=== PATIENT | female | born 1985 | race Caucasian/White ===

== ENCOUNTER 2018-12-16 09:56 | Outpatient (REF) | payer MEDICAID, SELFPAY ==
[2018-12-16 12:37] LABS: Cholesterol 192 mg/dL (50-200); Glucose 82 mg/dL (70-100); HDL Cholesterol 52 mg/dL (40-60); LDL CHOLESTEROL 128 mg/dL (<100); TSH (W/Ref FT4) 1.52 uIU/mL (0.358-3.74); Triglyceride 57 mg/dL (30-150)
== END 2018-12-16 10:16 ==
LOC: NCHCN 09:56
PROVIDERS: PCP Nurse Practitioner; Visit Provider Nurse Practitioner
DX: E04.9 Nontoxic goiter, unspecified (principal); Z00.00 Encounter for general adult medical examination without abnormal findings
CPT/HCPCS: 80061; 82947; 83721; 84443

== ENCOUNTER 2018-12-31 00:32 | Outpatient (CLI) | payer MEDICAID, SELFPAY ==
--- NOTE | 2018-12-31 11:58 | DI.US_ITS ---
SYMPTOMS/DIAGNOSIS: ENLARGED THYROID, E04.9 THYROID ULTRASOUND: Routine examination was performed. The right lobe measures 5.8 x 1.8 x 1.6 cm. The left lobe measures 5.4 x 1.4 x 1.6 cm. The isthmus is within normal limits at .5 cm. There is an area of decreased echogenicity in the left lobe of the thyroid gland measuring less than 5 mm in diameter. No internal blood flow is seen. No echogenic foci to suggest calcification is noted. IMPRESSION: Question of a small hypoechoic nodule in the left lobe. The finding is nonspecific and may represent a benign nodule. Follow up as clinically appropriate.
== END 2018-12-31 00:52 ==
PROVIDERS: PCP Nurse Practitioner; Visit Provider Nurse Practitioner
DX: E04.9 Nontoxic goiter, unspecified (principal); E04.1 Nontoxic single thyroid nodule
CPT/HCPCS: 76536

== ENCOUNTER 2020-01-03 19:10 | Outpatient (REF) | payer MEDICAID, SELFPAY ==
[2020-01-03 22:11] LABS: TSH (W/Ref FT4) 2.39 uIU/mL (0.36-3.74)
== END 2020-01-03 19:30 ==
LOC: NCHCN 19:10
PROVIDERS: PCP Nurse Practitioner; Visit Provider Nurse Practitioner Family
DX: E04.1 Nontoxic single thyroid nodule (principal)
CPT/HCPCS: 84443

== ENCOUNTER 2020-01-10 14:22 | Outpatient (REF) | payer MEDICAID, SELFPAY ==
--- NOTE | 2020-01-10 13:30 | PAPFT_PTH ---
PATIENT: Beata Mittal LOC: [facility]#:[id number] AGE/SX: 34/F ROOM: RE01/10/[address]: Linda Coates : 1985 BED: DIS: 01/10/2020 SPEC #: [id number] RECD: 01/11/20 12:38 STATUS: SANIYA REKerri #: [id number] MARCO: 01/10/20 13:[address]: Linda Coates DEPT: [facility] Cytology RECD BY: Zayra Stevenson Tissues: 1 - CX/ENDOCX FOR PAP SMEARS Procedures: PAP THIN PREP/UVM Screening HPV DNA PROBE Comments: [id number]
[2020-01-10 20:45] LABS: Abs Immature Grans 0.02 k/cumm (0.0-0.09); Absolute Basophil Count 0.03 k/cumm (0.0-0.2); Absolute Eosinophil Count 0.06 k/cumm (0.0-0.7); Absolute Lymphocyte Count 1.41 k/cumm (1.2-3.4); Absolute Monocyte Count 0.53 k/cumm (0.11-0.7); Absolute Neutrophil Count 2.74 k/cumm (1.2-6.7); Basophils % 0.6; Eosinophils % 1.3; HCT 40.7 % (36.0-46.0); Immature Grans % 0.4 %; Lymphocytes % 29.4; Mean Corp. HGB Concentration 34.4 g/dL (32.0-36.0); Mean Corpuscular Hemoglobin 29.6 pg (27.0-33.0); Mean Platelet Volume 10.3 fL (8.0-11.0); Monocytes % 11.1; Neutrophils % 57.2; Platelet Count 285 x1000/uL (130-400); RBC 4.73 m/cumm (4.00-5.20); RBC Distribution Width 12.1 % (11.7-14.6); White Blood Cell Count 4.79 k/cumm (4.4-10.8)
[2020-01-10 21:05] LABS: Iron 41 ug/dL (50-170)
== END 2020-01-10 14:42 ==
LOC: NCHCN 14:22
PROVIDERS: PCP Nurse Practitioner Family; Visit Provider Nurse Practitioner Family
DX: Z01.419 Encounter for gynecological examination (general) (routine) without abnormal findings (principal); Z12.4 Encounter for screening for malignant neoplasm of cervix; Z11.51 Encounter for screening for human papillomavirus (HPV); A63.0 Anogenital (venereal) warts; R53.83 Other fatigue; F41.8 Other specified anxiety disorders; E04.1 Nontoxic single thyroid nodule
CPT/HCPCS: 88142; 83540; 85025; 87624

== ENCOUNTER 2020-01-16 01:35 | Outpatient (CLI) | payer MEDICAID, SELFPAY ==
--- NOTE | 2020-01-16 | DI.US_ITS ---
EXAM: US THYROID CLINICAL HISTORY: NODULE LT E04.1, ENLARGED THYROID E04.9 TECHNIQUE: Ultrasound performed using standard protocol. COMPARISON: No exams were available for comparison FINDINGS: The right lobe of the thyroid measures 5.6 x 1.7 x 1.8 cm. The left lobe measures 5.3 x 1.6 x 1.7 cm . The thyroid echotexture is mildly heterogeneous. No nodules are identified. There is normal bloo d flow. IMPRESSION: Mildly enlarged thyroid. No evidence of a nodule. DATA REPOSITORY:
== END 2020-01-16 01:55 ==
PROVIDERS: PCP Nurse Practitioner Family; Visit Provider Nurse Practitioner Family
DX: E04.1 Nontoxic single thyroid nodule (principal); E07.89 Other specified disorders of thyroid
CPT/HCPCS: 76536

== ENCOUNTER 2020-08-29 14:53 | Outpatient (REF) | payer MEDICAID, SELFPAY ==
[2020-09-03 04:33] LABS: Patient Race White; SARS-CoV-2 RNA Undetected (Undetected); SARS-CoV-2 Specimen Source Nasal
== END 2020-08-29 15:13 ==
LOC: NCHCN 14:53
PROVIDERS: PCP Nurse Practitioner Family; Visit Provider Nurse Practitioner Family
DX: Z20.828 Contact with and (suspected) exposure to other viral communicable diseases (principal)
CPT/HCPCS: U0003

== ENCOUNTER 2021-04-29 19:20 | Outpatient (REF) | payer MEDICAID, SELFPAY ==
[2021-04-29 20:49] LABS: Abs Immature Grans 0.04 10^3/uL (0.0-0.06); Absolute Basophil Count 0.04 10^3/uL (0.0-0.2); Absolute Eosinophil Count 0.15 10^3/uL (0.0-0.7); Absolute Lymphocyte Count 2.09 10^3/uL (1.2-3.4); Absolute Monocyte Count 0.53 10^3/uL (0.1-0.8); Absolute Neutrophil Count 4.68 10^3/uL (1.2-6.7); Basophils % 0.5; HGB 13.1 g/dL (11.2-15.7); Immature Grans % 0.5; Lymphocytes % 27.8; MCH 29.5 pg (27.0-33.0); MCHC 33.6 % (32.0-36.0); MCV 87.8 fL (80-95); MPV 10.3 fL (8.0-11.0); Neutrophils % 62.2; Nucleated RBC 0 %; Platelet Count 289 10^3/uL (130-400); RBC 4.44 10^6/uL (3.93-5.22); RDW 11.7 % (11.7-14.6); RDW-SD 37.4 fL; WBC 7.53 10^3/uL (4.4-10.8)
[2021-04-29 21:27] LABS: Iron 52 ug/dL (50-170); Total Iron Binding Capacity 277 ug/dL (250-450); Transferrin Sat 19 % (15-50)
[2021-04-29 21:53] LABS: Ferritin 55 ng/mL (8-252); TSH (W/Ref FT4) 1.87 uIU/mL (0.36-3.74)
== END 2021-04-29 19:21 | disposition home or self-care (01) ==
LOC: NCHCN 19:20
PROVIDERS: PCP Nurse Practitioner Family; Visit Provider Nurse Practitioner Family
DX: E61.1 Iron deficiency (principal); E04.1 Nontoxic single thyroid nodule; E07.89 Other specified disorders of thyroid
CPT/HCPCS: 82728; 83540; 83550; 84443; 85025

== ENCOUNTER 2022-05-09 11:08 | Outpatient (REF) | payer MEDICAID, SELFPAY | END 2022-05-09 11:09 | disposition home or self-care (01) | LOC: NCHCN 11:08 | PROVIDERS: PCP Nurse Practitioner Family; Visit Provider Nurse Practitioner Family | DX: E61.1 Iron deficiency (principal); R53.83 Other fatigue; E04.9 Nontoxic goiter, unspecified; F41.8 Other specified anxiety disorders | CPT/HCPCS: 84443 ==

== ENCOUNTER → 2022-06-27 00:24 | Outpatient (CLI) | payer MEDICAID, SELFPAY ==
--- NOTE | 2022-06-27 12:15 | DI.US_ITS ---
Exam(s) US PELVIS TRANSVAGINAL EXAM: US PELVIS TRANSVAGINAL CLINICAL HISTORY: DYSMENORRHEA, N94.6 TECHNIQUE: Transabdominal and transvaginal imaging was performed using standard protocol. COMPARISON: No exams were available for comparison FINDINGS: KIDNEYS: Kidneys are symmetric in size. No evidence of renal calculi. No evidence of hydronephrosis. No renal mass or cyst identified. UTERUS: Anteverted. 7.1 x 3.8 x 4.9 cm Endometrium: 3 millimeters Myometrium: Unremarkable. Cervix: Unremarkable. OVARIES: Right: Cyst or mass: None. Left: Cyst or mass: 9 millimeter involuting follicle. DOPPLER: Color: Symmetric and uniform flow to both ovaries. No hyperemia. Duplex: Normal ovarian arterial waveforms visualized. CUL-DE-SAC: Free fluid: None. IMPRESSION: 1. Normal-appearing uterus with endometrial stripe within normal limits. 2. Unremarkable bilateral ovaries. DATA REPOSITORY:
--- NOTE | 2022-06-27 13:00 | DI.US_ITS ---
Exam(s) US THYROID EXAM: US THYROID CLINICAL HISTORY: ENLARGED THYROID, E04.9; LT THYROID NODULE, E04.1. TECHNIQUE: Ultrasound thyroid performed using standard protocol. COMPARISON: US US thyroid from 12/31/2018 US US THYROID from 01/16/2020 FINDINGS: ISTHMUS: 6 mm RIGHT LOBE: Size: 5.4 x 1.8 x 1.7 cm Echogenicity: Normal. Vascularity: Normal. Nodules: None. LEFT LOBE: Size: 4.9 x 1.8 x 1.7 cm Echogenicity: Normal. Vascularity: Normal. Nodules: None. OTHER FINDINGS: No abnormal lymph nodes. IMPRESSION: No evidence of thyroid nodules. DATA REPOSITORY:
== END ==
PROVIDERS: PCP Nurse Practitioner Family; Visit Provider Nurse Practitioner Family
DX: E04.1 Nontoxic single thyroid nodule (principal); N94.6 Dysmenorrhea, unspecified
CPT/HCPCS: 76536; 76830; 76856

== ENCOUNTER 2024-02-11 13:42 | Outpatient (REF) | payer MEDICAID, SELFPAY ==
[2024-02-11 15:41] LABS: Abs Immature Grans 0.02 10^3/uL (0.0-0.06); Absolute Basophil Count 0.04 10^3/uL (0.0-0.2); Absolute Eosinophil Count 0.11 10^3/uL (0.0-0.7); Absolute Lymphocyte Count 1.56 10^3/uL (1.2-3.4); Absolute Neutrophil Count 3.69 10^3/uL (1.2-6.7); Basophils % 0.7; Eosinophils % 1.9; HCT 39.5 % (36.0-46.0); Immature Grans % 0.3; Lymphocytes % 26.8; MCH 29.4 pg (27.0-33.0); MCHC 32.9 % (32.0-36.0); MCV 89 fL (80-95); MPV 10.2 fL (8.0-11.0); Monocytes % 6.9; Neutrophils % 63.4; Platelet Count 251 10^3/uL (130-400); RBC 4.42 10^6/uL (3.93-5.22); RDW 11.6 % (11.7-14.6); RDW-SD 37.5 fL; WBC 5.82 10^3/uL (4.4-10.8)
[2024-02-11 16:02] LABS: Iron 88 ug/dL (50-170); Total Iron Binding Capacity 258 ug/dL (250-450); Transferrin Sat 34 % (15-50)
[2024-02-11 16:11] LABS: Calculated LDL 139 mg/dL (<100); Cholesterol 207 mg/dL (<200); Ferritin 75 ng/mL (8-252); HDL Cholesterol 59 mg/dL (40-60); TSH 1.35 uIU/Ml (0.36-3.74); Triglyceride 46 mg/dL (<150)
[2024-02-11 16:55] LABS: FREE T4 0.93 ng/dL (0.76-1.46)
[2024-02-11 22:05] LABS: T3,Free 3.6 pg/mL (2.8-5.3)
== END 2024-02-11 13:43 | disposition home or self-care (01) ==
LOC: NCHCN 13:42
PROVIDERS: PCP Nurse Practitioner Family; Visit Provider Nurse Practitioner Family
DX: Z00.00 Encounter for general adult medical examination without abnormal findings (principal)
CPT/HCPCS: 80061; 82728; 83540; 83550; 84439; 84443; 84481; 85025

== ENCOUNTER 2024-02-25 12:13 | Outpatient (REF) | payer MEDICAID, SELFPAY ==
[2024-02-25 16:40] LABS: ESR 6 mm/hr (0-20)
[2024-02-25 17:14] LABS: Hemoglobin A1C 5.3 % (<5.7)
[2024-02-25 17:17] LABS: C-Reactive Protein < 0.50 mg/dL (<or=0.5)
[2024-02-25 22:02] LABS: Rheumatoid Factor <8.6 IU/mL (<12.0)
[2024-02-26 09:01] LABS: Cyclic Citrullinated Peptide <2.5 U/mL (<5.0)
[2024-02-26 15:28] LABS: ANA Interpretation Positive (Negative); ANA Titer Pattern 1:320 Homogeneous
[2024-02-28 14:41] LABS: Anaplasma phagocytophilum Negative (Negative); B. miyamotoi PCR Negative (Negative); Babesia divergens/MO-1 Negative (Negative); Babesia duncani Negative (Negative); Babesia microti Negative (Negative); Ehrlichia chaffeensis Negative (Negative); Ehrlichia ewingii/canis Negative (Negative); Ehrlichia muris eauclairensis Negative (Negative)
[2024-03-02 11:03] LABS: Lyme Ab w Rflx to Lyme Confirm Negative (Negative)
== END 2024-02-25 12:14 | disposition home or self-care (01) ==
LOC: NCHCN 12:13
PROVIDERS: PCP Nurse Practitioner Family; Visit Provider Nurse Practitioner Family
DX: M25.59 Pain in other specified joint (principal)
CPT/HCPCS: 85652; 86200; 87798; 83036; 86038; 86140; 86431; 86618

== ENCOUNTER 2024-03-03 15:23 | Outpatient (REF) | payer MEDICAID, SELFPAY ==
[2024-03-08 14:41] LABS: RNP Ab, IgG <6.0 CU (<20.0); Ro60 Ab, IgG <7.0 CU (<20.0); SS-A/Ro, IgG <2.3 CU (<20.0); SS-B (La) Ab, IgG <3.3 CU (<20.0); Sm (Smith) Ab, IgG <8.0 CU (<20.0); dsDNA Ab, IgG 32.4 IU/mL (<27.0)
== END 2024-03-03 15:24 | disposition home or self-care (01) ==
LOC: NCHCN 15:23
PROVIDERS: PCP Nurse Practitioner Family; Visit Provider Nurse Practitioner Family
DX: R53.83 Other fatigue (principal)
CPT/HCPCS: 86225; 86235

== ENCOUNTER 2024-10-06 14:29 | Outpatient (CLI) | payer BC, SELFPAY ==
--- NOTE | 2024-10-06 | DI.RAD_ITS ---
Exam(s) XR CHEST 2V PA LATERAL EXAM: XR CHEST 2V PA LATERAL CLINICAL HISTORY: Cough, R05.9. TECHNIQUE: 2D digital imaging was performed. COMPARISON: No exams were available for comparison FINDINGS: 2 views: Heart size is normal. The mediastinum is not widened. Lungs are clear. No infiltrates nor pleural effusions. IMPRESSION: No acute pulmonary findings. DATA REPOSITORY: RADIATION DOSE DELIVERED:
== END 2024-10-06 14:49 ==
LOC: DI 14:36
PROVIDERS: PCP Nurse Practitioner Family; Visit Provider Nurse Practitioner Family
DX: R05.9 Cough, unspecified (principal)
CPT/HCPCS: 71046

== ENCOUNTER 2025-03-30 14:12 | Outpatient (CLI) | payer BC, SELFPAY ==
[2025-03-30 12:49] LABS: Abs Immature Grans 0.02 10^3/uL (0.0-0.06); Absolute Basophil Count 0.04 10^3/uL (0.0-0.2); Absolute Eosinophil Count 0.06 10^3/uL (0.0-0.7); Absolute Lymphocyte Count 1.97 10^3/uL (1.2-3.4); Absolute Monocyte Count 0.35 10^3/uL (0.1-0.8); Absolute Neutrophil Count 4.18 10^3/uL (1.2-6.7); Basophils % 0.6 %; Eosinophils % 0.9 %; Immature Grans % 0.3 %; Lymphocytes % 29.8 %; MCH 30.2 pg (27.0-33.0); MCHC 35.1 % (32.0-36.0); MCV 86 fL (80-95); MPV 9.6 fL (8.0-11.0); Monocytes % 5.3 %; Neutrophils % 63.1 %; Platelet Count 282 10^3/uL (130-400); RBC 4.31 10^6/uL (3.93-5.22); RDW 11.6 % (11.7-14.6); RDW-SD 36.4 fL; WBC 6.62 10^3/uL (4.4-10.8)
[2025-03-30 13:34] LABS: ALT 17 U/L (14-59); AST 17 U/L (15-37); Albumin 3.9 g/dL (3.4-5.0); Alkaline Phosphatase 73 U/L (46-116); Anion Gap 8.2 mmol/L (3-11); BUN 16 mg/dL (7-18); Bilirubin, Total 0.6 mg/dL (0.2-1.0); CO2 25.8 mmol/L (21.0-32.0); CREATININE 1.1 mg/dL (0.55-1.02); Calcium 9.2 mg/dL (8.5-10.1); Chloride 107 mmol/L (98-107); Estimated GFR 65.14 (mL/min/1.73m2); Glucose 94 mg/dL (74-106); Lipase 52 U/L (<78); Potassium 4.1 mmol/L (3.5-5.1); Sodium 141 mmol/L (136-145); Total Protein 7.2 g/dL (6.4-8.2)
== END 2025-03-30 14:13 | disposition home or self-care (01) ==
LOC: LBO 14:13
PROVIDERS: PCP Nurse Practitioner Family; Visit Provider Nurse Practitioner Family
DX: R10.11 Right upper quadrant pain (principal)
CPT/HCPCS: 36415; 80053; 83690; 85025

== ENCOUNTER 2025-06-01 13:05 | Outpatient (REF) | payer BC, SELFPAY ==
--- NOTE | 2025-06-01 10:30 | PAPFT_PTH ---
PATIENT: Beata Mittal LOC: [facility]#:[id number] AGE/SX: 39/F ROOM: RE06/01/[address]: Linda Coates : 1985 BED: DIS: 06/01/2025 SPEC #: [id number] RECD: 06/01/25 18:17 STATUS: SANIYA REQ #: [id number] MARCO: 06/01/25 10:[address]: Linda Coates DEPT: [facility] Cytology RECD BY: Zayra Stevenson Tissues: 1 - CX/ENDOCX FOR PAP SMEARS Procedures: PAP THIN PREP/UVM Screening HPV DNA PROBE Comments: [id number] (HPV 16 & 18/45)
[2025-06-01 16:27] LABS: TSH (W/Ref FT4) 1.46 uIU/mL (0.36-3.74)
== END 2025-06-01 13:06 | disposition home or self-care (01) ==
LOC: NCHCN 13:05
PROVIDERS: PCP Nurse Practitioner Family; Visit Provider Nurse Practitioner Family
DX: Z00.00 Encounter for general adult medical examination without abnormal findings (principal); E04.1 Nontoxic single thyroid nodule; Z12.4 Encounter for screening for malignant neoplasm of cervix
CPT/HCPCS: 88142; 84443; 87624

== ENCOUNTER 2025-06-22 03:10 | Outpatient (CLI) | payer BC, SELFPAY ==
--- NOTE | 2025-06-22 07:30 | DI.US_ITS ---
APPROVED REPORT EXAM: Comprehensive 2D, Doppler, and color-flow Echocardiogram Patient Location: Out-Patient Operations Welder: Anai Doty RDCS (AE) Other Information Study Quality: Good Conclusion Normal left ventricular wall thickness and chamber size. Ejection fraction is 60 to 65%. Wall motion is normal Normal right ventricular size and function Both atria are normal in size There is no structural or hemodynamically significant valvular disease Wall motion Left Ventricle The left ventricle is normal size. The left ventricular systolic function is normal. The left ventricular ejection fraction is within the normal range. There is normal left ventricular wall thickness. There is normal LV segmental wall motion. There is no ventricular septal defect visualized. LVEF is 60-65%. Right Ventricle The right ventricle is normal size. The right ventricular systolic function is normal. Atria The left atrium size is normal. The right atrium size is normal. The interatrial septum is intact with no evidence for an atrial septal defect. Aortic Valve The aortic valve is normal in structure. Aortic valve is trileaflet. There is no aortic valvular stenosis. No aortic regurgitation is present. Mitral Valve The mitral valve is normal in structure. No evidence of mitral valve stenosis. Trace mitral regurgitation. Tricuspid Valve The tricuspid valve is normal in structure. There is no tricuspid valve stenosis. Trace tricuspid regurgitation. Unable to assess PA pressure. Pulmonic Valve The pulmonary valve is normal in structure. There is no pulmonic valvular stenosis. There is no pulmonic valvular regurgitation. Great Vessels The aortic root is normal in size. The ascending aorta is normal in size. Aortic arch is normal in caliber. IVC is normal in size and collapses >50% with inspiration. Pericardium There is no pericardial effusion. 2D Dimensions IVSD d PLAX 0.71 cm F: 0.6-1.0 Ao Root d 3.04 cm F: 2.7 - 3.3 LVPW d PLAX 0.71 cm F: 0.6 - 1.0 Ao Asc Diam d 2.90 cm F: 2.3 - 3.1 LVID d PLAX 4.74 cm F: 3.8 - 5.2 LVDs 3.04 cm F: 2.2 - 3.5 LV EF Teichholz 65.3 % FS 35.81 % LV EDV (Teich) 104.4 mL LV ESV (Teich) 36.2 mL M-Mode TAPSE 2.88 cm (M/F) >1.7 Auto EF LV EDV A4C 106.4 mL LV EDV A2C 131.0 mL LV EDV BP 119.9 mL LV ESV A4C 43.1 mL LV ESV A2C 46.1 mL LV ESV BP 45.0 mL LVEF(%) A4C 59.5 % LVEF(%) A2C 64.8 % LVEF(%) BP 62.5 % LV SV A4C 63.3 ml LV SV A2C 84.9 ml LV SV BP 75.0 ml LV CO A4C 4.5 L/min LV CO A2C 5.8 L/min LV CO BP 5.1 L/min HR A4C 71.29 BPM HR A2C 68.18 BPM LV EDV Index (BP) LA Volume LA Length A4C 4.0 cm LA Length A2C 4.2 cm LA Area A4C s 12.56 cm2 LA Area A2C s 13.01 cm2 LA Vol A4C A-L 33.14 mL LA Vol A2C A-L 33.82 mL LA Vol Biplane A-L 34.3 mL LA Vol/BSA A4C A-L LA Vol/BSA A2C A-L LA Vol/BSA BP A-L 18.2 mL/m2 LA Vol A4C MOD 29.7 mL LA Vol A2C MOD 32.1 mL LA Vol BP MOD 31.5 mL RA Volume RA Area A4C 12.1 cm2 RA ESV A4C (A-L) 30.1mL RA Vol/BSA A4C A-L RA Length A4C 4.1 cm RA ESV A4C (MOD) 27.2mL LV Diastology MV E' medial 0.102 (>0.07 m/s) MV E Vmax 0.92 (0.4-1.3 m/s) MV E/E' MED 9.08 (<14) MV A Vmax 0.55 (0.4-1.3 m/s) MV E' lateral 0.164 (>0.1 m/s) E/A Ratio 1.7 MV E/E' LAT 5.62 (<14) MV E' Average 0.133 m/s MV E/E'(average) 6.94 Aortic Valve AoV Vmax 1.72 m/s LVOT Vmax 1.28 m/s AoV Peak Grad 11.8 mmHg LVOT Peak Grad 6.5 mmHg AoV Area (Vmax) 2.41 cm2 LVOT VTI 0.256 m AoV VTI 0.370 m LVOT Mean Grad 3.6 mmHg AoV Mean Sim. 1.17 m/s LVOT SV 83.05 mL AoV Mean Grad 6.3 mmHg LVOT Diam s 2.00 cm AoV Area (VTI) 2.25 cm2 AV Regurg Peak Gr. 11.77 mmHg Velocity Ratio 0.74 Mitral Valve MV DT 156 (160-240 msec) MV Vmax TIPS 0.93 m/s MV Mean Grad 1.5 (<2mmHg) MV VTI 0.234 m Pulmonary Valve PV Vmax 0.93 (0.5-1.5 m/s) RVOT Vmax 0.71 m/s PV Peak Grad 3.4 mmHg RVOT Peak Gr. 2.0 mmHg PV Mean Sim 0.75 m/s RVOT VTI 0.179 m PV Mean Grad 2.4 mmHg RVOT Mean Gr. 1.1 mmHg Tricuspid Valve RA Pressure 3.00 mmHg TV S' 0.15 m/s
== END 2025-06-22 03:30 ==
LOC: DI 03:10
PROVIDERS: PCP Nurse Practitioner Family; Visit Provider Internal Medicine Cardiovascular Disease
DX: R00.2 Palpitations (principal)
CPT/HCPCS: 93306

== ENCOUNTER 2025-06-22 03:10 | Outpatient (CLI) | payer BC, SELFPAY ==
--- NOTE | 2025-06-22 | DI.MAMMO_ITS ---
Exam(s) MAMMO SCREENING EXAM: MAMMO SCREENING CLINICAL HISTORY: SCREENING, Z12.31 TECHNIQUE: Bilateral full field digital CC and MLO mammographic images were obtained with 3D tomosynthesis and utilizing computer aided detection (CAD). COMPARISON: This is a baseline examination. FINDINGS: Masses/Architectural Distortion: No suspicious masses or areas of architectural distortion are present. Microcalcifications: No suspicious pleomorphic-type are seen. Skin Thickening/Nipple Retraction: None. IMPRESSION: 1. There is no evidence of a malignancy at this time. 2. Unless there is more urgent need, screening mammography is recommended, as per [employer] guidelines. BI-RADS Category 1 - Negative Breast Density - Category C - The breast are heterogeneously dense, which may obscure small masses. Breast density Category C or D implies that the patient has dense breast tissue. Dense breast tissue can make it harder to find cancer on a mammogram. Dense breast tissue is also associated with an increased risk of breast cancer. This information about the result of the mammogram report was provided to the patient to raise their awareness. Use this report when you speak with the patient about their risks for breast cancer, which includes their family history. At that time, you may recommend additional screening tests (Ultrasound or MRI) as these tests may add significant information. A negative radiographic report should not delay biopsy if a dominant or clinically suspicious mass is present. Up to ten percent of cancers are not identified on mammography. A negative report may reinforce clinical impression. Adenosis and dense breasts may obscure an underlying neoplasm. False positive reports average 6 to 10%. Patient will receive a letter notifying them of these results.
== END 2025-06-22 03:30 ==
LOC: DI 03:11
PROVIDERS: PCP Nurse Practitioner Family; Visit Provider Nurse Practitioner Family
DX: Z12.31 Encounter for screening mammogram for malignant neoplasm of breast (principal); R92.333 Mammographic heterogeneous density, bilateral breasts
CPT/HCPCS: 77063; 77067